=== PATIENT | male | born 1965 | race Caucasian/White ===

== ENCOUNTER 2024-01-29 08:46 | Emergency (ER) | payer OTHER ==
[2024-01-29 12:13] VITALS: BP 109/70; PULSE 73; RESP 18; TEMP 97.7; BMI 32.5
== END 2024-01-29 10:59 | disposition home or self-care (01) ==
LOC: JER 08:46
DX: M54.6 Pain in thoracic spine (principal); W10.8XXA Fall (on) (from) other stairs and steps, initial encounter
CPT/HCPCS: 99283-25